=== PATIENT | male | born 1975 ===

== ENCOUNTER 2017-06-29 09:18 | Emergency (ER) | payer MEDICAID, OTHER ==
[2017-06-29 09:18] VITALS: BMI 19.9
[2017-06-29] MEDS ORDERED: Sodium Chloride 0.9% 1,000 ML IV STA (09:50)
--- NOTE | 2017-06-29 10:01 | ED PDOC ---
Arrival/HPI - General Chief Complaint: Abdominal Pain Time Seen by Provider: 06/29/17 09:50 Historian: Patient - History of Present Illness Narrative History of Present Illness (Text): 06/29/17 09:58 42-year-old male presents today with a 3 day history of epigastric abdominal pain nausea vomiting and fevers of 103. Patient also complaining of productive cough with yellow sputum 2 days. Patient complaining of nasal congestion and sore throat. Denies dizziness. Denies headache. No urinary symptoms. Denies diarrhea. Patient states he did not get his flu shot this year. Denies any sick contacts. No other complaints Time/Duration: Other (3 days) Symptom Onset: Sudden Quality: Aching Severity Level: 4 Past Medical History - Provider Review Nursing Documentation Reviewed: Yes - Travel History Have you recently traveled outside [place] w/in the past 3 mons?: No - Infectious Disease Hx of Infectious Diseases: None - Tetanus Immunization Tetanus Immunization: Unknown - Cardiac Hx Cardiac Disorders: No - Pulmonary Hx Respiratory Disorders: Yes Hx Asthma: Yes - Neurological Hx Neurological Disorder: No - HEENT Hx HEENT Disorder: No - Renal Hx Renal Disorder: No - Endocrine/Metabolic Hx Endocrine Disorders: No - Hematological/Oncological Hx Blood Disorders: No - Integumentary Hx Dermatological Disorder: No - Musculoskeletal/Rheumatological Hx Musculoskeletal Disorders: No Hx Falls: No - Gastrointestinal Hx Gastrointestinal Disorders: No - Genitourinary/Gynecological Hx Genitourinary Disorders: No - Psychiatric Hx Depression: Yes Hx Substance Use: No Family/Social History - Physician Review Nursing Documentation Reviewed: Yes Family/Social History: Unknown Family HX Smoking Status: Heavy Smoker > 10 Cigarettes Daily Hx Alcohol Use: No Hx Substance Use: No Allergies/Home Meds Allergies/Adverse Reactions: Allergies No Known Allergies Allergy (Verified 06/29/17 09:28) Review of Systems - Review of Systems Constitutional: Fevers ENT: Sore Throat, Sinus Congestion Respiratory: Cough, Sputum. absent: SOB Cardiovascular: absent: Chest Pain, Palpitations Gastrointestinal: Abdominal Pain, Nausea, Vomiting. absent: Constipation, Diarrhea Genitourinary Male: absent: Dysuria, Frequency, Hematuria Musculoskeletal: absent: Arthralgias, Back Pain, Neck Pain Skin: absent: Rash, Pruritis Neurological: absent: Headache, Dizziness Psychiatric: absent: Anxiety, Depression, Suicidal Ideation Physical Exam Vital Signs Reviewed: Yes Vital Signs Temp Pulse Resp BP Pulse Ox 06/29/17 14:32 61 8 L 102/54 L 100 06/29/17 13:13 98.7 F 60 18 104/63 100 06/29/17 11:05 68 18 118/78 99 06/29/17 09:26 98.8 F 71 18 116/82 95 Temperature: Afebrile Blood Pressure: Normal Pulse: Regular Respiratory Rate: Normal Appearance: Positive for: Well-Appearing, Non-Toxic, Comfortable Pain Distress: None Mental Status: Positive for: Alert and Oriented X 3 - Systems Exam Head: Present: Atraumatic Conjunctiva: Present: Normal Ears: Present: Normal, NORMAL TM Mouth: Present: Moist Mucous Membranes. No: Drooling, Trismus Pharnyx: Present: Normal. No: ERYTHEMA, EXUDATE, TONSILS ENLARGED, Peritonsilar Swelling, Uvular Deviation, Muffled/Hoarse Voice Nose (External): Present: Atraumatic Nose (Internal): Present: Normal Inspection Neck: Present: Normal Range of Motion, Trachea Midline. No: Meningeal Signs Respiratory/Chest: Present: Clear to Auscultation, Good Air Exchange. No: Respiratory Distress, Accessory Muscle Use Cardiovascular: Present: Regular Rate and Rhythm, Normal S1, S2. No: Murmurs Abdomen: Present: Tenderness (+ epigastric tenderness), Normal Bowel Sounds, Guarding (mild guarding). No: Distention, Peritoneal Signs, Rebound Back: Present: Normal Inspection. No: CVA Tenderness, Midline Tenderness, Paraspinal Tenderness Upper Extremity: Present: Normal ROM Lower Extremity: Present: Normal ROM Neurological: Present: GCS=15, Speech Normal Skin: Present: Warm, Dry, Normal Color. No: Rashes Psychiatric: Present: Alert, Oriented x 3 Medical Decision Making ED Course and Treatment: 06/29/17 10:00 Patient is nontoxic well appearing with stable vital signs presenting with cough , fever, abdominal pain CBC wnl CMP wnl Amylase wnl Lipase wnl Urinalysis + blood cxr; no infiltrate or effusion; ekg; sinus bradycardia at 54b/m no st elevations, [id number] pt reassessment; pt feeling better; slight rlq tenderness; with fevers of 103- 104 at home, decreased appetite. will do ct. pt seen and evaluated by dr. Cheng. ct abd/pelvis ordered. CAT scan:FINDINGS: LOWER THORAX: Unremarkable. LIVER: Multiple very small nonspecific low-attenuation lesions. Largest such lesion is seen at the extreme dome of the liver and measures 7 mm in greatest dimension. No biliary dilatation. Smooth contour. Normal size. GALLBLADDER AND BILE DUCTS: Unremarkable. PANCREAS: Unremarkable. No gross lesion or ductal dilatation. SPLEEN: Unremarkable. ADRENALS: Unremarkable. No mass. KIDNEYS AND URETERS: 11 mm rounded low-density mass mid left kidney, likely cyst. Too small to characterize. No other mass. No calculus or hydronephrosis. VASCULATURE: Unremarkable. No aortic aneurysm. BOWEL: Unremarkable. No obstruction. No gross mural thickening. APPENDIX: Not identified. No secondary findings to suggest acute appendicitis. PERITONEUM: Unremarkable. No free fluid. No free air. LYMPH NODES: Unremarkable. No enlarged lymph nodes. BLADDER: Unremarkable. REPRODUCTIVE: Normal prostate BONES: No acute fracture. OTHER FINDINGS: None. IMPRESSION: No acute abnormality. Nonspecific small low-density lesions in the liver. Probable 11 mm cyst mid left kidney. The remainder of the examination is unremarkable. Patient reassessment:pt feeling much better; vitals stable; abdomen non tender. will d/c home to f/u with PMD, urologist for hematuria and renal cyst. pt most likely with viral syndrome; stable vitals. no distress. advised patient of liver lesion and kidney cyst and stressed importance of f/u. Discussed all results with patient in depth. advised increasing fluids. tylenol every 4 hours as needed for pain/fever. f/u with pmd and urologist. advised immediate return if symptoms worsen,persist or if new symptoms develop. Patient verbalizes understanding of discharge instructions and need for immediate followup. all aspects of this case were discussed the attending of record. Impression: cough, abdominal pain, hematuria Tylenol every 4 hours as needed for pain/fever reduction pepcid; 1 tablet daily Increase fluids Follow up with primary care physician within the next 2 days Follow up with the Urologist within the next 2 days. Return immediately if symptoms worsen persist or if new symptoms develop: High fevers, increasing pain, vomiting, diarrhea or any other concerning symptoms develop - Lab Interpretations Lab Results: 06/29/17 10:30 06/29/17 10:30 Lab Results 06/29/17 10:30: WBC 6.2 D, RBC 4.90, Hgb 14.3, Hct 44.2, MCV 90.2, MCH 29.2, MCHC 32.4, RDW 13.6, Plt Count 161, MPV 10.3, Gran % 67.3, Lymph % (Auto) 19.1 L , [place] % (Auto) 12.0 H, Eos % (Auto) 1.1 L, Baso % (Auto) 0.5, Gran # 4.19, Lymph # 1.2, [place] # 0.8 H, Eos # 0.1, Baso # 0.03 06/29/17 10:30: Sodium 139, Potassium 3.9, Chloride 104, Carbon Dioxide 26, Anion Gap 12, BUN 16, Creatinine 0.8, Est GFR ( Amer) > 60, Est GFR (Non- Af Amer) > 60, Random Glucose 90, Calcium 9.3, Total Bilirubin 0.4, AST 44, ALT 40, Alkaline Phosphatase 55, Total Protein 6.9, Albumin 3.9, Globulin 3.0, Albumin/Globulin Ratio 1.3, Amylase 80, Lipase 98 06/29/17 10:30: Urine Color Yellow, Urine Appearance Clear, Urine pH 6.0, Ur Specific [place] >= 1.030, Urine Protein Trace H, Urine Glucose (UA) Negative, Urine Ketones Negative, Urine Blood Moderate H, Urine Nitrate Negative, Urine Bilirubin Negative, Urine Urobilinogen 0.2, Ur Leukocyte Esterase Negative, Urine RBC 2 - 5, Urine WBC 0 - 2, Ur Epithelial Cells 0 - 2, Urine Bacteria Few 06/29/17 10:30: Influenza Typ A,B (EIA) Negative for flu a/b - RAD Interpretation Radiology Orders: 06/29/17 09:50 CHEST TWO VIEWS (PA/LAT) [RAD] Stat 06/29/17 12:49 ABD PELVIS PO & IV CONTRAST [CT] Stat - Medication Orders Current Medication Orders: Discontinued Medications Famotidine (Pepcid) 20 mg IVP STAT STA Stop: 06/29/17 09:51 Last Admin: 06/29/17 10:24 Dose: 20 mg IVP Administration Document 06/29/17 10:24 SF (Rec: 06/29/17 10:24 SF [id number] Charges for Administration # of IVP Administrations 1 Sodium Chloride (Sodium Chloride 0.9%) 1,000 mls @ 999 mls/hr IV .Q1H1M STA Stop: 06/29/17 10:50 Last Admin: 06/29/17 10:24 Dose: 999 mls/hr eMAR Start Stop Document 06/29/17 10:24 SF (Rec: 06/29/17 10:24 SF [email or web address]) Intravenous Solution Start Date 06/29/17 Start Time 10:24 End Date 06/29/17 End time 11:25 Total Infusion Time 61 Ondansetron HCl (Zofran Inj) 4 mg IVP STAT STA Stop: 06/29/17 09:51 Last Admin: 06/29/17 10:24 Dose: 4 mg IVP Administration Document 06/29/17 10:24 SF (Rec: 06/29/17 10:24 [email or web address] Charges for Administration # of IVP Administrations 1 Disposition/Present on Arrival - Present on Arrival Any Indicators Present on Arrival: No History of DVT/PE: No History of Uncontrolled Diabetes: No Urinary Catheter: No History of Decub. Ulcer: No History Surgical Site Infection Following: None - Disposition Have Diagnosis and Disposition been Completed?: Yes Diagnosis: Cough, Abdominal pain, Hematuria, Kidney lesion, Liver lesion Disposition: HOME/ ROUTINE Disposition Time: 15:48 Patient Plan: Discharge Condition: GOOD Discharge Instructions (ExitCare): Abdominal Pain (ED), Cold Symptoms (ED) Additional Instructions: Tylenol every 4 hours as needed for pain/fever reduction pepcid; 1 tablet daily Increase fluids Follow up with primary care physician within the next 2 days Follow up with the Urologist within the next 2 days. Return immediately if symptoms worsen persist or if new symptoms develop: High fevers, increasing pain, vomiting, diarrhea or any other concerning symptoms develop Prescriptions: Famotidine [Pepcid] 20 mg PO DAILY #30 tab Referrals: Fracisco Kent DO [Staff Provider] - Follow up with primary Duke Henriquez MD [Staff Provider] - Follow up with primary [facility] [place] - Follow up with primary Forms: [employer] (Mongolian), WORK NOTE
[2017-06-29 10:48] LABS: BASO # 0.03 K/mm3 (0.0-2.0); BASO % 0.5 % (0.0-3.0); EOS # 0.1 (0.0-0.7); EOS % 1.1 % (1.5-5.0); GRAN # 4.19 (1.4-6.5); GRAN % 67.3 % (50.0-68.0); HEMOGLOBIN 14.3 g/dL (14.0-18.0); LYMPH # 1.2 (1.2-3.4); LYMPH % 19.1 % (22.0-35.0); MEAN CELL VOLUME 90.2 fl (80.0-105.0); MEAN CORPUSCULAR HEMOGLOBIN 29.2 pg (25.0-35.0); MEAN CORPUSCULAR HGB CONC 32.4 g/dl (31.0-37.0); MEAN PLATELET VOLUME 10.3 fl (7.0-11.0); MONO # 0.8 (0.1-0.6); RBC 4.9 10^6/uL (3.5-6.1); RED CELL DISTRIBUTION WIDTH 13.6 % (11.5-14.5); WHITE BLOOD COUNT 6.2 10^3/ul (4.5-11.0)
[2017-06-29 10:59] LABS: ALB/GLOB RATIO 1.3 (1.1-1.8); ALBUMIN 3.9 g/dL (3.0-4.8); ALT/SGPT 40 U/L (7-56); AMYLASE 80 U/L (35-125); AST/SGOT 44 U/L (17-59); BLOOD UREA NITROGEN 16 mg/dL (7-21); CALCIUM 9.3 mg/dL (8.4-10.5); GFR AFRICAN-AMERICAN > 60; GFR NON-AFRICAN AMERICAN > 60; LIPASE 98 U/L (23-300)
[2017-06-29 11:08] LABS: URINE BILIRUBIN NEGATIVE (NEGATIVE); URINE BLOOD MODERATE (NEGATIVE); URINE GLUCOSE (UA) NEGATIVE (NEGATIVE); URINE LEUKOCYTE ESTERASE NEGATIVE Leu/uL (NEGATIVE); URINE NITRATE NEGATIVE (NEGATIVE); URINE PROTEIN TRACE mg/dL (<30 mg/dL); URINE UROBILINOGEN 0.2 E.U./dL (<1 E.U./dL)
[2017-06-29 11:10] LABS: URINE APPEARANCE CLEAR (CLEAR); URINE COLOR YELLOW (YELLOW)
[2017-06-29 11:24] LABS: URINE BACTERIA FEW (NEG); URINE EPITHELIAL CELLS 0 - 2 /hpf (0-5); URINE WBC 0 - 2 /hpf (0-6)
--- NOTE | 2017-06-29 12:24 | CARD ---
APPROVED REPORT EKG Measurement Heart [id number] <Conclusion> Sinus bradycardia Possible Left atrial enlargement Possible Anterior infarct, age undetermined Abnormal ECG
--- NOTE | 2017-06-29 12:27 | RAD ---
HISTORY: cough/fever COMPARISON: 07/24/2015 TECHNIQUE: Chest PA and lateral FINDINGS: LUNGS: No active pulmonary disease. PLEURA: No significant pleural effusion identified. No pneumothorax apparent. CARDIOVASCULAR: Normal. OSSEOUS STRUCTURES: No significant abnormalities. VISUALIZED UPPER ABDOMEN: Normal. OTHER FINDINGS: None. IMPRESSION: No active disease.
[2017-06-29] MEDS ORDERED: Iohexol 240 (50 ml) ONE (12:58)
[2017-06-29 13:14] VITALS: TEMP 98.7
[2017-06-29] MEDS ORDERED: Iohexol 350 MG/100 ML VIAL ONE (13:32)
--- NOTE | 2017-06-29 15:33 | CT ---
PROCEDURE: CT Abdomen and Pelvis with contrast HISTORY: abdominal pain/ rlq/epigastric COMPARISON: None. TECHNIQUE: Contrast dose: 100 mL Omnipaque 350 Radiation dose: Total exam DLP = 253.79 mGy-cm. This CT exam was performed using one or more of the following dose reduction techniques: Automated exposure control, adjustment of the mA and/or kV according to patient size, and/or use of iterative reconstruction technique. FINDINGS: LOWER THORAX: Unremarkable. LIVER: Multiple very small nonspecific low-attenuation lesions. Largest such lesion is seen at the extreme dome of the liver and measures 7 mm in greatest dimension. No biliary dilatation. Smooth contour. Normal size. GALLBLADDER AND BILE DUCTS: Unremarkable. PANCREAS: Unremarkable. No gross lesion or ductal dilatation. SPLEEN: Unremarkable. ADRENALS: Unremarkable. No mass. KIDNEYS AND URETERS: 11 mm rounded low-density mass mid left kidney, likely cyst. Too small to characterize. No other mass. No calculus or hydronephrosis. VASCULATURE: Unremarkable. No aortic aneurysm. BOWEL: Unremarkable. No obstruction. No gross mural thickening. APPENDIX: Not identified. No secondary findings to suggest acute appendicitis. PERITONEUM: Unremarkable. No free fluid. No free air. LYMPH NODES: Unremarkable. No enlarged lymph nodes. BLADDER: Unremarkable. REPRODUCTIVE: Normal prostate BONES: No acute fracture. OTHER FINDINGS: None. IMPRESSION: No acute abnormality. Nonspecific small low-density lesions in the liver. Probable 11 mm cyst mid left kidney. The remainder of the examination is unremarkable.
[2017-06-29 15:57] VITALS: BP 127/86; PULSE 62; RESP 19; O2SAT 100
== END 2017-06-29 15:57 | disposition home or self-care (01) ==
LOC: ED 09:18
DX: R31.9 Hematuria, unspecified (principal); N28.9 Disorder of kidney and ureter, unspecified; K76.9 Liver disease, unspecified; R10.9 Unspecified abdominal pain; R05 Cough
CPT/HCPCS: 71046; 74177; 80053; 81001; 82150; 83690; 85025; 87804; 93005; 96361; 96374; 96375; 99285; J2405; J7040; Q9966; Q9967

== ENCOUNTER 2017-09-13 12:05 | Emergency (ER) | payer OTHER ==
[2017-09-13 12:16] VITALS: BMI 22.6
[2017-09-13 12:19] VITALS: RESP 18; TEMP 98.5
--- NOTE | 2017-09-13 12:36 | ED PDOC ---
Arrival/HPI - General Chief Complaint: Upper Extremity Problem/Injury Time Seen by Provider: 09/13/17 12:20 - History of Present Illness Narrative History of Present Illness (Text): 42 year old M c Past medical history asthma p/w fall yesterday down 2-3 steps. Now complains of pain in L shoulder. Took ibuprofen at midnight, did help, pain continued upon awakening. 7/10 in severity, worse with movement, nonradiating. Denies numbness/paresthesias. Denies headstrike, LOC, N/V, chest pain, dyspnea. Past Medical History - Infectious Disease Hx of Infectious Diseases: None - Tetanus Immunization Tetanus Immunization: Unknown - Cardiac Hx Cardiac Disorders: No - Pulmonary Hx Respiratory Disorders: Yes Hx Asthma: Yes - Neurological Hx Neurological Disorder: No - HEENT Hx HEENT Disorder: No - Renal Hx Renal Disorder: No - Endocrine/Metabolic Hx Endocrine Disorders: No - Hematological/Oncological Hx Blood Disorders: No - Integumentary Hx Dermatological Disorder: No - Musculoskeletal/Rheumatological Hx Musculoskeletal Disorders: No Hx Falls: No - Gastrointestinal Hx Gastrointestinal Disorders: No - Genitourinary/Gynecological Hx Genitourinary Disorders: No - Psychiatric Hx Depression: Yes Hx Substance Use: Yes - Anesthesia Hx Anesthesia: No Family/Social History Family/Social History: No Known Family HX Smoking Status: Heavy Smoker > 10 Cigarettes Daily Hx Alcohol Use: No Hx Substance Use: Yes Substance used: marijuana Allergies/Home Meds Allergies/Adverse Reactions: Allergies No Known Allergies Allergy (Verified 06/29/17 09:28) Home Medications: Home Meds Medication Instructions Recorded Confirmed Albuterol HFA [Ventolin HFA 90 1 puff IH QID PRN 09/13/17 09/13/17 mcg/actuation (8 g)] Review of Systems - Physician Review All systems were reviewed & negative as marked: Yes - Review of Systems Respiratory: absent: SOB Cardiovascular: absent: Chest Pain Physical Exam - Physical Exam Narrative Physical Exam (Text): Constitutional: No acute distress. Head: Normocephalic. Atraumatic. Eyes: PERRL. ENT: Moist mucous membranes. Neck: Supple. No midline tenderness. Cardiovascular: Regular rate. Radial pulses 2+ Chest: No tenderness. Respiratory: Clear to auscultation bilaterally. GI: Soft. Nontender. Nondistended. Back: No CVA tenderness. Musculoskeletal: L shoulder tender at scapula and over L posterior ribs. FROM of shoulder with pain. Skin: No ecchymosis or abrasions. Neurologic: Alert, no focal deficit. Moves all extremities. Vital Signs Temp Pulse Resp BP Pulse Ox 09/13/17 12:18 98.5 F 87 18 111/70 96 Medical Decision Making ED Course and Treatment: XR ribs. XR shoulder. Toradol IM. 09/13/17 14:00 IMPRESSION: No acute rib fracture. Clear lungs. SHOULDER IMPRESSION: No acute fracture or dislocation. Discharged home, f/u PMD, return to Emergency department for worsening pain, fever, dyspnea. - RAD Interpretation Radiology Orders: 09/13/17 12:37 RIBS LEFT & PA CHEST [RAD] Stat SHOULDER LEFT [RAD] Stat - Medication Orders Current Medication Orders: Discontinued Medications Ketorolac Tromethamine (Toradol) 60 mg IM STAT STA Stop: 09/13/17 12:38 Last Admin: 09/13/17 12:50 Dose: 60 mg MAR Pain Assessment Document 09/13/17 12:50 HI (Rec: 09/13/17 12:50 HI [id number]) Pain Reassessment Is this a pain reassessment? No IM Administration Charges Document 09/13/17 12:50 HI (Rec: 09/13/17 12:50 HI [id number]) Injection Site MAR Injection Site Right Gluteus Mervin Charges for Administration # of IM Administrations 1 Disposition/Present on Arrival - Present on Arrival Any Indicators Present on Arrival: No History of DVT/PE: No History of Uncontrolled Diabetes: No Urinary Catheter: No History of Decub. Ulcer: No History Surgical Site Infection Following: None - Disposition Have Diagnosis and Disposition been Completed?: Yes Diagnosis: Rib contusion Disposition: HOME/ ROUTINE Disposition Time: 14:01 Patient Plan: Discharge Patient Problems: Current Active Problems Problem Status Onset Rib contusion Acute Condition: STABLE Discharge Instructions (ExitCare): Bruised Rib (DC) Prescriptions: Ibuprofen [Motrin] 1 tab PO Q6 #30 tab Forms: [employer] (Armenian)
--- NOTE | 2017-09-13 13:56 | RAD ---
PROCEDURE: Radiographs of the Left Shoulder HISTORY: Fall, shoulder pain COMPARISON: No prior. FINDINGS: BONES: Bone alignment and mineralization are normal. There is no acute fracture or bone destruction JOINTS: Normal. Glenohumeral and acromioclavicular joints preserved. No osteoarthritis. SOFT TISSUES: Normal. OTHER FINDINGS: None. IMPRESSION: No acute fracture or dislocation.
--- NOTE | 2017-09-13 13:57 | RAD ---
PROCEDURE: Radiographs of the Chest and Left Ribs. HISTORY: fall, L sided thoracic pain COMPARISON: 06/29/2017 TECHNIQUE: Frontal radiograph of the chest and multiple oblique radiographs of the left ribs were obtained. FINDINGS: LEFT RIBS: No acute fracture or focal lesion visualized. LUNGS: The lungs are clear. PLEURA: No pneumothorax or pleural fluid. CARDIOVASCULAR: Normal sized heart. No pulmonary vascular congestion. OTHER FINDINGS: None. IMPRESSION: No acute rib fracture. Clear lungs.
[2017-09-13 14:15] VITALS: BP 117/82; PULSE 80; O2SAT 97
== END 2017-09-13 14:12 | disposition home or self-care (01) ==
LOC: ED 12:05
DX: S20.212A Contusion of left front wall of thorax, initial encounter (principal); W10.9XXA Fall (on) (from) unspecified stairs and steps, initial encounter; F17.210 Nicotine dependence, cigarettes, uncomplicated
CPT/HCPCS: 71101; 73030; 96372; 99284; J1885